=== PATIENT | male | born 1975 | race Caucasian/White ===

== ENCOUNTER 2023-05-08 07:30 | Emergency (ER) | payer OTHER, SELFPAY ==
[2023-05-08 07:32] VITALS: BP 129/95
--- NOTE | 2023-05-08 08:03 | ED.GENMED ---
History of Present Illness
General
Chief Complaint: Musculo-Skeletal Complaint
Time Seen by Provider: 05/08/23 08:03
Travel History
Have you had any contact with someone who has COVID-19?: No
Do you have any symptoms of coronavirus? Fever > 100 degrees, chills, cough, shortness of breath, sore throat, loss of taste or smell, muscle aches, or headache?: No
History of Present Illness
History of Present Illness:
HPI: Patient presents due to right hip and groin discomfort which started 3 days ago. 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 He also reports some
discomfort in the right side of the low back. He has no associated nausea or vomiting. He reports some difficulty voiding this morning.
EXAM:
GENERAL: Well appearing but appears to be in rather significant distress when he attempts to move the right lower extremity at the hip
HEENT: Moist oral mucosa
CARDIOVASCULAR: No murmurs, normal heart rate and rhythm, No chest wall tenderness
PULMONARY: No respiratory distress, breath sounds are clear and equal
ABDOMEN: Soft with no peritoneal signs, no tenderness
NEUROLOGIC: Excellent strength all extremities, no coordination deficits
PSYCHIATRIC: Appropriate mental status, normal insight and judgement
EXTREMITIES: Nontender, no edema, there is point tenderness at the hip flexor musculature anteriorly and there is decreased active range of motion at the right hip
SKIN: No rash, no lesions
ED COURSE:
8:05 AM: I initially evaluated patient
NUMBER AND COMPLEXITY OF PROBLEMS ADDRESSED AT THE ENCOUNTER
� Chronic conditions affecting care: The patient has no significant past medical history but has had an appendectomy in the past
� Acute Exacerbation and/or Progression of Chronic Illness: This is an acute problem
� Differential Diagnosis includes: Severe hip flexor strain, ureteral stone/colic, right inguinal hernia
AMOUNT AND/OR COMPLEXITY OF DATA TO BE REVIEWED AND ANALYZED
� I performed an independent evaluation of and my interpretation is:
EKG:
CT: I personally reviewed CT imaging�no evidence of ureteral stone
X-rays:
Laboratory Studies: Urinalysis negative for blood and infection
Other:
� Review of other/old records: I reviewed note, the patient had appendicitis November 2018
� Clinical information was obtained by an independent historian: I spoke to at bedside
� Prescriptions/Medications Considered but not given:
� Further testing considered but not performed:
RISK OF COMPLICATIONS AND/OR MORBIDITY OR MORTALITY OF PATIENT MANAGEMENT
� Social determinants of health affecting care: Lives at home
� Discussion with other providers:
� Escalation of care including admission/observation vs risk of discharge considered: Pain clearly is worsened with movement of the right lower extremity however he also reports some back discomfort radiating to the right groin
region. CT imaging shows no sign of hernia/stone. He states he has had appendectomy. We tried a dose of IM Toradol as well as Flexeril. On reassessment at about 10:45 AM, the patient appears a little more comfortable. I favor more of a hip
flexor strain and I recommended he follows up with orthopedics.
Past History
Past History
ED Past Medical History: None
ED Past Surgical History: Other (Tympanoplasty)
Social History
Tobacco: Non-smoker
Alcohol: Occasional
Drug: None
Personal:
Living: with family
Employment: Employed
Family History
Family History: Other (Noncontributory)
Phy Exam
Physical Exam
Physical Exam:
See HPI
Course
Orders/Labs/Results
Orders:
Orders
05/08/23 08:11
Cyclobenzaprine HCl [Flexeril] 10 mg PO NOW STA
Ketorolac [Toradol] 30 mg IM NOW STA
05/08/23 08:12
CT Abd/pel Without Iv Or Oral Urgent
Comment:
Reason For Exam: R flank to R groin pain; has no appendix
05/08/23 09:59
Urinalysis Reflex To Culture Urgent
Date Specimen was Collected: 05/08/23
Time Specimen was Collected: 09:55
Vital Signs
Initial and Last Documented VS:
Initial Vital Signs
Temp Pulse BP Pulse Ox
98.3 F 63 129/95 96
05/08/23 07:32 05/08/23 07:32 05/08/23 07:32 05/08/23 07:32
Last Documented Vital Signs
Temp Pulse BP Pulse Ox
98.3 F 63 129/95 96
05/08/23 07:32 05/08/23 07:32 05/08/23 07:32 05/08/23 07:32
*Critical Care Note
Total Time (30-74mins, 75-104mins- exclusive of procedures): Not Applicable
ED Attending Note
-
Portions of this chart may have been created with voice recognition software.� Occasional wrong word or��sound alike� substitutions may have occurred due to the inherent limitations of voice recognition software.
Discharge Plan
Departure
Patient Disposition: Home (Routine Discharge)
Date of Disposition: 05/08/23
Time of Disposition: 10:45
Patient with high blood pressure during this ER visit?: Yes
Discharge Problem:
Strain of flexor muscle of right hip
Instructions: Muscle Strain (DC)
Prescriptions:
New
cyclobenzaprine 10 mg tablet
10 mg PO TIDPRN PRN (Reason: muscle spasm) Qty: 15 0RF
No Action
ibuprofen [Advil Liqui-Gel] 200 MG capsule
400 mg PO PRN PRN (Reason: pain)
ibuprofen 600 MG tablet
600 mg PO Q6HPRN PRN (Reason: pain) Qty: 20 0RF
cyclobenzaprine 10 MG tablet
10 mg PO HSPRN PRN (Reason: muscle spasms) Qty: 10 0RF
prednisone 20 MG tablet
40 mg PO DAILY Qty: 8 0RF
hydrocodone-acetaminophen 1 TABLET tablet
1 - 2 tab PO Q4HPRN PRN (Reason: moderate to severe pain) Qty: 20 0RF
Referrals:
Eddie Aparicio I., [Family Provider] -
Jayce Ballard MD [Active] - Follow up in 2-3 days
Activity Restrictions/Additional Instructions:
Please follow-up your primary care doctor, or I have given you the for a local orthopedist.. I recommend 3-4 [id number] ibuprofen (Motrin) every 8 hours with food for a few days. Return here if worse. I sent a prescription for Flexeril to
your pharmacy.
Interventions
Interventions:
*Risk Screen - Suicide Last Done: 05/08/23 08:31
*General Assessment Last Done: 05/08/23 08:27
*Neglect/Abuse Screening Last Done: 05/08/23 08:31
*ED COVID-19 Vaccine History Last Done: 05/08/23 07:37
[2023-05-08] MEDS: TORADOL 30 MG IM (08:20)
[2023-05-08] MEDS: FLEXERIL 10 MG PO (08:21)
[2023-05-08 08:26] VITALS: BMI 34.1
[2023-05-08 10:00] VITALS: BP 129/87
[2023-05-08 10:06] LABS: Urine Albumin Negative (Neg - Trace); Urine Bilirubin Negative (Negative); Urine Character Clear (Clear); Urine Color Yellow; Urine Glucose Negative (Negative); Urine Ketone Negative (Negative); Urine Leukocyte Negative (Negative); Urine Nitrite Negative (Negative); Urine Occult Blood Negative (Negative); Urine Urobilinogen Negative (Neg - 1+)
== END 2023-05-08 10:50 | disposition home or self-care (01) ==
LOC: EMR 07:30
PROVIDERS: EMERGENCY PHYSICIAN Emergency Medicine; FAMILY PHYSICIAN Internal Medicine
DX: S76.011A Strain of muscle, fascia and tendon of right hip, initial encounter (principal); W03.XXXA Other fall on same level due to collision with another person, initial encounter; R03.0 Elevated blood-pressure reading, without diagnosis of hypertension
CPT/HCPCS: 99284; 96372; 74176; 81003

== ENCOUNTER 2024-09-17 06:22 | Day surgery (SDC) | payer OTHER, SELFPAY | END 2024-09-17 11:49 | disposition home or self-care (01) | LOC: GI 06:22 | PROVIDERS: ATTENDING PHYSICIAN Internal Medicine Gastroenterology | DX: Z12.11 Encounter for screening for malignant neoplasm of colon (principal); K63.5 Polyp of colon; K64.8 Other hemorrhoids | CPT/HCPCS: 45380; 88305 ==